=== PATIENT | female | born 1960 | race Caucasian/White ===

== ENCOUNTER 2021-01-01 16:27 | Outpatient (CLI) | payer OTHER, SELFPAY | END 2021-01-01 16:28 | disposition home or self-care (01) | LOC: ANHCOVIDVC 16:27 | PROVIDERS: PCP Family Medicine | DX: Z23 Encounter for immunization (principal) | CPT/HCPCS: 0001A; 91300 ==

== ENCOUNTER 2021-01-22 16:28 | Outpatient (CLI) | payer OTHER, SELFPAY | END 2021-01-22 16:29 | disposition home or self-care (01) | LOC: ANHCOVIDVC 16:28 | PROVIDERS: PCP Family Medicine | DX: Z23 Encounter for immunization (principal) | CPT/HCPCS: 0002A; 91300 ==

== ENCOUNTER 2021-04-03 18:16 | Emergency (ER) | payer OTHER, SELFPAY ==
--- NOTE | ~2021-04-03 | XR_ITS ---
EXAMINATION: XR chest 2V DATE: 04/03/2021 20:03 INDICATION: Right-sided rib pain and shortness of breath TECHNIQUE: AP and lateral views of the chest were obtained. COMPARISON: Chest radiograph dated 01/29/2019 FINDINGS: Focal airspace opacity in the right middle lobe which in the acute setting is concerning for pneumoni a. No other airspace opacities, pulmonary edema, pleural effusion or pneumothorax. The cardiomediasti nal silhouette is normal. Mild to moderate lower thoracic predominant spondylosis. Postoperative [place] of prior laparoscopic banding procedure. IMPRESSION: 1. Right middle lobe opacities concerning for pneumonia. Recommend radiographic follow-up to resoluti on. Reviewed, dictated and finalized at location A. IMPRESSION: 1. Right middle lobe opacities concerning for pneumonia. Recommend radiographic follow-up to resolution.
[2021-04-03 18:24] VITALS: BP 128/82; PULSE 104; RESP 18; TEMP 36.8; O2SAT 95
--- NOTE | 2021-04-03 19:44 | ED.ABDPAIN ---
HPI - Abdominal Pain General Chief Complaint: Abdominal Pain Stated Complaint: cp, ruq Time Seen by Provider: 04/03/21 19:43 History of Present Illness HPI narrative: Moderate RUQ abdominal pain for the past 3 weeks. Constant with paroxysms. Slightly better when laying on left side. Associated with nausea. No vomiting, diarrhea, fever. Related Data Home Medications Medication Instructions Recorded Confirmed duloxetine 60 mg capsule,delayed 60 mg PO DAILY 12/05/20 12/05/20 release naloxegol 25 mg tablet 25 mg PO QAM 12/05/20 12/05/20 pregabalin 200 mg capsule 200 mg PO BID 12/05/20 12/05/20 Allergies Allergy/AdvReac Type Severity Reaction Status Date / Time meperidine Allergy Unknown WELTS, Verified 10/01/16 13:08 HIVES AT IV INJECTION SITE morphine Allergy Unknown Nausea Verified 04/03/21 21:01 Penicillins Allergy Unknown Nausea Verified 04/03/21 21:01 Sulfa (Sulfonamide Allergy Unknown Unknown Verified 04/03/21 21:01 Antibiotics) Review of Systems Review of Systems: All systems reviewed & are unremarkable except as noted in HPI and below Cardiovascular: Cardiovascular: Denies chest pain Respiratory: Respiratory: Reports cough and Denies dyspnea Gastrointestinal: Gastrointestinal: Reports as per HPI Genitourinary: Genitourinary: Denies hematuria and Denies dysuria Neurologic: Reports system reviewed and no additional complaints, except as documented [facility] Family History Family History Other Family history of type 1 diabetes mellitus Social History Social History Smoking status: Former smoker Smoking end date: 10/24/82 Alcohol intake: never Exam Const: General: healthy appearing, no acute distress and alert Orientation/consciousness: patient oriented x3 HENMT: Head: normal to inspection Neck: Neck: normal visual inspection Resp: Effort & Inspection: normal respiratory effort Auscultation: clear to auscultation bilaterally, no rales, no rhonchi and no wheezes Cardio: Jugular venous distension: no JVD Rate: regular rate Rhythm: regular rhythm Heart sounds: no murmurs GI: Inspection: non-distended GI Palp: Yes Soft to palpation, Yes Tenderness to palpation present (GI) (RUQ), No Guarding due to palpation present (GI), No Palpable mass present and No Rebound tenderness present Auscultation: normal bowel sounds Skin: General skin exam: normal color Neuro: General: patient oriented x3 and moves all extremities Speech: normal speech Extrem: General: no edema Psych: Appearance: well kempt Affect: normal affect Course Vital Signs Vital signs: Vital Signs Temperature 36.8 C 04/03/21 18:24 Pulse Rate 104 H 04/03/21 18:24 Respiratory Rate 18 04/03/21 18:24 Blood Pressure 128/82 04/03/21 18:24 Pulse Oximetry 95 04/03/21 18:24 Temperature 36.8 C 04/03/21 18:24 Pulse Rate 101 H 04/03/21 21:22 Respiratory Rate 18 04/03/21 21:22 Blood Pressure 131/90 04/03/21 21:22 Pulse Oximetry 96 04/03/21 21:22 MDM - Abdominal Pain MDM Narrative Medical decision making narrative: RLL infiltrate. Vitals and labs stable. SHe should be a good candidate for outpatient treatment. Differential Diagnosis Differential diagnosis: Likely abdominal pain, acute appendicitis, calculus of kidney, pancreatitis, small bowel obstruction and other (GERD, Gastritis, Cholecystitis) Medical Records Attestation: I reviewed the patient's medical records. Lab Data Attestation: I reviewed the patient's lab results. Result diagrams: 04/03/21 20:16 04/03/21 20:16 Labs: Lab Results 04/03/21 04/03/21 Range/Units 20:16 20:16 WBC 9.0 (4.5-10.0) K/mm3 RBC 3.65 L (4.2-5.4) M/mm3 Hgb 11.2 L (12.0-15.0) g/dL Hct 33.9 L (37.0-47.0) % MCV 92.9 (80-100) fl MCH 30.7 (26-34) pg MCHC 33.0 (32-
[2021-04-03 20:22] LABS: Basophils Percent Auto 0.4 % (0.2-1.2); Eosinophils Percent Auto 0.1 % (0-4.4); Hematocrit 33.9 % (37.0-47.0); Hemoglobin 11.2 g/dL (12.0-15.0); Immature Granulocyte Absolute 0.05 K/mm3 (0.00-0.031); Immature Granulocyte Percent A 0.6 % (0-0.5); Lymphocytes Absolute Auto 1.81 K/mm3 (0.9-3.2); Lymphocytes Percent Auto 20.1 % (18.3-44.2); Mean Corpuscular Hemoglobin 30.7 pg (26-34); Mean Corpuscular Volume 92.9 fl (80-100); Monocytes Absolute Auto 0.7 K/mm3 (0.1-0.6); Neutrophils Absolute Auto 6.4 K/mm3 (1.3-6.7); Neutrophils Percent Auto 70.8 % (45.5-73.1); Platelet Count Result 440 k/mm3 (150-375); Red Blood Count 3.65 M/mm3 (4.2-5.4); Red Cell Distribution Width 15.4 % (11.5-14.5)
[2021-04-03 20:31] LABS: Alanine Aminotransferase 14 U/L (4-35); Albumin Level 3.2 g/dL (3.5-5.1); Alkaline Phosphatase 130 U/L (38-126); Anion Gap 5 mmol/L (8-16); Aspartate Amino Transferase 21 U/L (14-36); Bilirubin,Total 0.4 mg/dL (0.2-1.3); Blood Urea Nitrogen 9 mg/dL (7-17); Calcium 8.9 mg/dL (8.4-10.2); Carbon Dioxide 24 mmol/L (22-30); Chloride 106 mmol/L (98-107); Estimated CRCL calculation 107 ml/min; Estimated Glomerular Filt Rate > 60; Glucose 90 mg/dL (65-105); Lipase 15 U/L (23-300); Potassium 4.3 mmol/L (3.4-5.0); Sodium 135 mmol/L (137-145)
[2021-04-03] MEDS: HYDROcodone/acetaminophen (*CRX) 5-325 MG TABLET 1 TAB PO (21:02)
[2021-04-03] MEDS: levoFLOXacin 750 MG TABLET PO (21:05)
[2021-04-03 21:22] VITALS: BP 131/90; PULSE 101; RESP 18; O2SAT 96
== END 2021-04-03 21:16 | disposition home or self-care (01) ==
PROVIDERS: Emergency Provider Emergency Medicine; PCP Family Medicine
DX: J18.9 Pneumonia, unspecified organism (principal); Z87.891 Personal history of nicotine dependence
CPT/HCPCS: 36415; 71046; 80053; 83690; 85025; 99283; A9270

== ENCOUNTER → 2021-04-30 16:48 | Outpatient (CLI) | payer OTHER, SELFPAY ==
--- NOTE | ~2021-04-30 | XR_ITS ---
EXAMINATION: XR chest 2V DATE: 04/30/2021 17:05 INDICATION: Pneumonia, unspecified organism. TECHNIQUE: Frontal and lateral views of the chest were obtained. COMPARISON: Chest 2 views 04/03/2021 FINDINGS: There are mild airspace opacities in right middle lobe. No pleural effusion or pneumothorax . The heart size is normal. IMPRESSION: 1. Mild airspace opacities in right middle lobe with interval improvement, consistent with pneumonia. Reviewed, dictated and finalized at location A. IMPRESSION: 1. Mild airspace opacities in right middle lobe with interval improvement, cons istent with pneumonia.
== END ==
PROVIDERS: PCP Family Medicine; Visit Provider Physician Assistant
DX: J18.9 Pneumonia, unspecified organism (principal); R91.8 Other nonspecific abnormal finding of lung field
CPT/HCPCS: 71046

== ENCOUNTER → 2021-07-10 15:59 | Outpatient (CLI) | payer OTHER, SELFPAY ==
--- NOTE | ~2021-07-10 | XR_ITS ---
XR chest 2V DATE: 07/10/2021 16:35 INDICATION: Abnormal blood chemistry TECHNIQUE: 2 views COMPARISON: 04/30/2021 2 view chest 04/03/2021 2 view chest FINDINGS: There is mild residual infiltrate, atelectasis//or fibrotic change of the middle lobe, with serial improvement since 04/30/2021 and 04/03/2021. The lungs otherwise appear clear. No pleural effusion or pulmonary vascular congestion or pneumothora x. Normal heart size. IMPRESSION: Serial improvement of right middle lobe infiltrate Reviewed, dictated and finalized at location A.
== END ==
PROVIDERS: PCP Family Medicine; Visit Provider Physician Assistant
DX: R79.89 Other specified abnormal findings of blood chemistry (principal); R91.8 Other nonspecific abnormal finding of lung field
CPT/HCPCS: 71046